=== PATIENT | male | born 1970 | race Caucasian/White ===

== ENCOUNTER 2017-03-31 17:35 | Emergency (ER) | payer BC ==
[~2017-03-31] VITALS: Ht 170.2 cm; Wt 68.0 kg
[~2017-03-31 17:35] MED LIST: AUGMENTIN 875-1 EACH PO; BUPROPION XL300 MG PO; CLONIDINE HCL0.1 MG PO; CRUTCH1 EACH; NORCO 5-325 TA1 EACH PO; PAROXETINE HCL20 MG PO; PERCOCET 5-3251 EACH PO; TRAZODONE HCL150 MG PO
[2017-03-31] MEDS ORDERED: PREDNISONE20 MG PO (18:58)
--- NOTE | 2017-04-01 07:30 | EKG ---
[facility] [address] [facility] [place], [place] [address] Signed Normal sinus rhythm Normal ECG No previous ECGs available Confirmed by GURJIT BHATIA MD ([id number]) on 04/01/2017 7:30:17 AM Electronically Signed By: GURJIT BHATIA MD 04/01/17 0730 PATIENT NAME: MAURO NAILS Electrocardiogram DATE OF : 74 PHYSICIAN: GURJIT BHATIA MD REPORT #: [id number] REPORT IS CONFIDENTIAL AND NOT TO BE RELEASED WITHOUT AUTHORIZATION
== END 2017-03-31 19:14 | disposition home or self-care (01) ==
LOC: ED 17:35
DX: L50.9 Urticaria, unspecified (principal); K21.9 Gastro-esophageal reflux disease without esophagitis; I10 Essential (primary) hypertension; Z90.49 Acquired absence of other specified parts of digestive tract; Z88.8 Allergy status to other drugs, medicaments and biological substances; Z79.899 Other long term (current) drug therapy
CPT/HCPCS: 93005; 93010; 99284; J7512; Q0163

== ENCOUNTER 2024-05-14 20:15 | Emergency (ER) | payer OTHER ==
[~2024-05-14] VITALS: Ht 170.2 cm; Wt 76.0 kg
[~2024-05-14 20:15] MED LIST changes: +MOTRIN IB200 MG PO; +PREDNISONE20 MG PO; +ROSUVASTATIN CA20 MG PO; +TYLENOL EXTRA500 MG PO
[2024-05-14] MEDS ORDERED: ondansetron HCL 4 MG/2 ML VIAL IV ONE (20:30)
[2024-05-14] MEDS ORDERED: MORPHINE SULFATE 4 MG/ML VIAL IV ONE (20:30)
[2024-05-14] MEDS ORDERED: SODIUM CHLORIDE 0.9% 1,000 ML IV ONE (20:30)
[2024-05-14 20:47] LABS: EOSINOPHILS 3.7 % (0-6); HEMATOCRIT 41.8 % (35.0-50.0); HEMOGLOBIN 14.9 g/dL (12.0-18.0); LYMPHOCYTES 21.1 % (24-44); MCH 32.7 (27-36); MCHC 35.5 g/dl (30-36); MCV 92.1 fl (81-99); MONOCYTES 8.7 % (0-12); NEUTROPHILS 65.5 % (39-80); PLATELET COUNT 214 K/uL (140-440); RBC 4.54 M/ul (4.3-5.7); RDW 12.9 (10.5-15.0)
[2024-05-14] MEDS ORDERED: fentaNYL citrate 100 MCG/2 ML VIAL IV ONE (21:00)
[2024-05-14 21:07] LABS: ALBUMIN 3.6 g/dL (3.4-5.0); ALBUMIN/GLOBULIN RATIO 1.24 (1.1-2.4); ANION GAP 11.2 (7-21); BILIRUBIN, TOTAL 0.6 ng/dL (0.2-1.0); BUN/CREATININE RATIO 11.03 (6.0-28.6); CALCIUM 8.6 mg/dL (8.5-10.1); CREATININE, SERUM 1.45 mg/dL (0.70-1.30); POTASSIUM 4.2 mmol/L (3.5-5.1); PROTEIN, TOTAL 6.5 g/dL (6.4-8.2)
[2024-05-14] MEDS ORDERED: HYDROmorphone HCL 1 MG/ML SYR IV PRN (21:45)
[2024-05-14] MEDS ORDERED: KETOROLAC TROMETHAMINE 15 MG/ML VIAL IV ONE (21:45)
[2024-05-14] MEDS ORDERED: ONDANSETRON ODT8 MG PO (21:53)
[2024-05-14] MEDS ORDERED: HYDROCODON-ACE1 EA10 PO (21:53)
[2024-05-14 21:56] LABS: BILIRUBIN, URINE NEGATIVE (negative); BLOOD/HGB, URINE NEGATIVE (Negative); KETONE, URINE NEGATIVE (Negative); LEUK ESTERASE, URINE NEGATIVE (negative); NITRITE, URINE NEGATIVE (negative)
[2024-05-14] MEDS ORDERED: HYDROCODONE BIT/ACETAMINOPHEN 5/325 MG 1 TAB HOME.PACK PO ONE (22:00)
[2024-05-14] MEDS ORDERED: ONDANSETRON 4 MG HOME.PACK SL ONE (22:00)
[2024-05-14 22:11] VITALS: BP 123/77
== END 2024-05-14 22:11 | disposition home or self-care (01) ==
LOC: ED 20:15
PROVIDERS: Family Medicine
DX: K40.90 Unilateral inguinal hernia, without obstruction or gangrene, not specified as recurrent (principal); K42.9 Umbilical hernia without obstruction or gangrene; I10 Essential (primary) hypertension; Z88.8 Allergy status to other drugs, medicaments and biological substances; Z79.899 Other long term (current) drug therapy
CPT/HCPCS: 36415; 74177; 76870; 80053; 81003; 85025; A9270; J1170; J1885; J2405; J3010; J7030

== ENCOUNTER 2024-05-15 23:00 | Observation (INO) | payer OTHER ==
[~2024-05-15] VITALS: Ht 170.2 cm; Wt 74.4 kg
--- OUTSIDE RECORDS SUMMARY | 2024-05-15 23:01 | XMS ---
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 E.D. VISIT COUNT (12 MO.) 2 EBONY [place] TOTAL 2 NOTE: Visits indicate total known visits. ED/UCC VISIT TRACKING (12 MO.) 05/15/2024 23:00 [facility]Y [facility] [place] TYPE: Emergency COMPLAINT: - LT LEG PAIN 05/14/2024 20:15 [facility] [place] TYPE: Emergency COMPLAINT: - GROIN PAIN DIAGNOSES: - Allergy status to other drugs, medicaments and biological substances - Essential (primary) hypertension - Left testicular pain - Other termite exterminator helper (current) drug therapy - Umbilical hernia without obstruction or gangrene - Unilateral inguinal hernia, without obstruction or gangrene, not specified as recurrent INPATIENT VISIT TRACKING (12 MO.) No inpatient visits to display in this time frame [email or web address]
[2024-05-15] MEDS ORDERED: diazePAM 10 MG/2 ML SYR IV ONE (23:30)
[2024-05-15] MEDS ORDERED: GABAPENTIN 300 MG CAP PO ONE (23:30)
[2024-05-15] MEDS ORDERED: methylPREDNISolone SOD SUCC 125 MG/2 ML VIAL IV ONE (23:30)
[2024-05-15] MEDS ORDERED: KETOROLAC TROMETHAMINE 30 MG/ML VIAL IV ONE (23:30)
[2024-05-16] MEDS ORDERED: HYDROmorphone HCL 1 MG/ML SYR IV ONE (00:30)
[2024-05-16] MEDS ORDERED: HYDROmorphone HCL 2 MG HOME.PACK PO ONE (01:15)
[2024-05-16] MEDS ORDERED: CYCLOBENZAPRINE HCL 10 MG HOME.PACK PO ONE (01:15)
[2024-05-16] MEDS ORDERED: methylPREDNISolone 4 MG HOME.PACK PO ONE (01:15)
[2024-05-16] MEDS ORDERED: ZOLPIDEM TARTRATE 5 MG TAB PO ONE (01:30)
[2024-05-16] MEDS ORDERED: CYCLOBENZAPRINE HCL 10 MG TAB PO PRN (01:30)
[2024-05-16] MEDS ORDERED: ACETAMINOPHEN 325 MG TAB PO PRN (01:30)
[2024-05-16] MEDS ORDERED: KETOROLAC TROMETHAMINE 30 MG/ML VIAL IV PRN ×2 (01:30→08:45)
[2024-05-16] MEDS ORDERED: DEXTROSE 5% - LACTATED RINGERS 1,000 ML IV SCH (01:30)
[2024-05-16] MEDS ORDERED: ondansetron HCL 4 MG/2 ML VIAL IV PRN ×3 (01:30→15:45)
--- NOTE | 2024-05-16 01:45 | NUR ---
pt ARRIVED TO THE FLOOR VIA STRETCHER. REPORT RECEIVED FROM JODI GUTIERREZ. pt TRANSFERED TO THE BED VIA SBA. IVF INFUSING PER ORDER. pt DENIES ANY OTHER NEEDS AT THIS TIME. CALL LIGHT WITHIN REACH. ASSESSMENT AND VITAL SIGNS DONE.
[2024-05-16] MEDS ORDERED: ZALEPLON 5 MG CAP PO PRN (02:15)
--- NOTE | 2024-05-16 03:27 | NUR ---
pt RESTING IN THE BED WITH EYES CLOSED. RR EVEN AND UNLABORED. CALL LIGHT WITHIN REACH.
[2024-05-16 05:39] LABS: BASOPHILS 0.1 % (0-2); HEMATOCRIT 43.2 % (35.0-50.0); HEMOGLOBIN 14.9 g/dL (12.0-18.0); LYMPHOCYTES 5.4 % (24-44); MCH 32.3 (27-36); MCHC 34.5 g/dl (30-36); MCV 93.6 fl (81-99); NEUTROPHILS 93.5 % (39-80); PLATELET COUNT 180 K/uL (140-440); RBC 4.62 M/ul (4.3-5.7); RDW 12.9 (10.5-15.0)
[2024-05-16 05:54] LABS: ALBUMIN 3.4 g/dL (3.4-5.0); ALBUMIN/GLOBULIN RATIO 1.1 (1.1-2.4); ANION GAP 12.5 (7-21); BILIRUBIN, TOTAL 0.5 ng/dL (0.2-1.0); BUN/CREATININE RATIO 13.08 (6.0-28.6); CALCIUM 8.7 mg/dL (8.5-10.1); CREATININE, SERUM 1.07 mg/dL (0.70-1.30); MAGNESIUM 1.8 mg/dL (1.8-2.4); POTASSIUM 4.5 mmol/L (3.5-5.1); PROTEIN, TOTAL 6.5 g/dL (6.4-8.2)
--- NOTE | 2024-05-16 05:58 | NUR ---
ASSESSMENT AND VITAL VIGNS DONE. pt UP TO THE BR SBA. pt SATES THE PAIN IS THERE BUT IT IS TOLERABLE AT THIS TIME. CALL LIGHT WITHIN REACH.
--- NOTE | 2024-05-16 07:49 | NUR ---
MORNING ASSESSMENT COMPLETE. IV TORADOL GIVEN FOR 6/10 LEFT GROIN PAIN. PATIENT IS REQUESTING NARCOTIC PAIN MEDICATIONS. NO NAUSEA NOTED, ASSESSMENT IS OTHERWISE BENIGN. S.O. IN ROOM WITH PATIENT. PRE-SURGICAL WIPE TO BE DONE BY PATIENT. PRE-PROCEDURE CHECKLIST IS COMPLETE.
--- NOTE | 2024-05-16 08:01 | NUR ---
ATTEMPTED TO CALL DR. DUTTON, NO MESSAGE LEFT.
[2024-05-16] MEDS ORDERED: LACTATED RINGER'S 1,000 ML IV SCH (08:45)
[2024-05-16] MEDS ORDERED: FAMOTIDINE 20 MG/ 2 ML VIAL IV SCH (09:00)
[2024-05-16] MEDS ORDERED: CEFAZOLIN SODIUM 2 GM/20 ML SYR IV SCH (09:00)
[2024-05-16] MEDS ORDERED: GABAPENTIN 300 MG CAP PO SCH (09:00)
--- NOTE | 2024-05-16 09:14 | NUR ---
UR CLINICAL REVIEW: [facility] OBS CRITERIA [place] SOURCE OBS 05/15/24 @ 2301 ORDER MATCHES REG NO AUTH REQUIRED FOR OBS STAY UNLESS CLINICALS REQUESTED. AWAITING PROCEDURE TODAY 05/17/24
--- NOTE | 2024-05-16 09:43 | NUR ---
PATIENT ALERT AND ORIENTED, SITTING UP IN BED. SIGNIFICANT OTHER IN ROOM. PATIENT STATES HE LIVES IN SINGLE LEVEL HOME. DEMOGRAPHICS VERIFIED. DENIES ANY DME USE. DRIVES SELF NORMALLY, SIGNIFICANT OTHER ABLE TO ASSIST WITH TRANSPORT AT TIME OF DC. PATIENT HAS NO FINANCIAL HARDSHIP AT THIS TIME. PATIENT DENIES ANY NEEDS FROM CASE MANAGEMENT, INSTRUCTED TO NOTIFY STAFF IF NEEDS COME UP. VERBALIZES UNDERSTANDING.
--- NOTE | 2024-05-16 09:48 | NUR ---
MED REC COMPLETE
--- NOTE | 2024-05-16 10:03 | NUR ---
IVF CHANGED TO LR@85. PATIENT GIVEN IV PEPCID, IV ANCEF, PO GABAPENTIN. PAIN RATING IS 4/10. PATIENT KNOWS HE MAY HAVE PO TYLENOL AND FLEXERIL AT 1030.
--- NOTE | 2024-05-16 10:16 | EKG ---
[facility] [address] [facility] [place] [address] Signed Sinus bradycardia Otherwise normal ECG When compared with ECG of 31-MAR-2017 17:43, Vent. rate has decreased BY 30 BPM Confirmed by Rashad Schmitz MD () on 05/16/2024 10:16:17 AM Electronically Signed By: RASHAD SCHMITZ MD 05/16/24 1016 PATIENT NAME: MAURO NAILS KINZA Electrocardiogram DATE OF : 74 PHYSICIAN: RASHAD SCHMITZ MD REPORT #: [id number] REPORT IS CONFIDENTIAL AND NOT TO BE RELEASED WITHOUT AUTHORIZATION
--- NOTE | 2024-05-16 11:06 | NUR ---
PATIENT GIVEN 650MG OF TYLENOL AND 5MG OF FLEXERIL FOR 4/10 PAIN. NO OTHER NEEDS AT THIS TIME.
[2024-05-16] MEDS ORDERED: LIDOCAINE HCL 2% 5 ML SDV ONE (13:54)
[2024-05-16] MEDS ORDERED: propofoL 200 MG/20 ML VIAL ONE (13:54)
--- NOTE | 2024-05-16 13:55 | NUR ---
VISITED DURING SPIRITUAL CARE ROUNDS. PT SUPPORTED BY LIFE PARTNER IN ROOM. BOTH IN OVERALL GOOD SPIRITS ALTHOUGH PT STATED HE IS UNCOMFORTABLE DUE TO PAIN, LOOKING FORWARD TO PROCEDURE. LUBRICATING MACHINE TENDER PROVIDED SUPPORTIVE PRESENCE, HOSPITALITY, PRAYER. PT AND TROLLEY CAR OPERATOR EXPRESSED GRATITUDE.
--- NOTE | 2024-05-16 14:17 | NUR ---
PATIENT TO SURGERY WITH MATT AMARAL.
[2024-05-16] MEDS ORDERED: fentaNYL citrate 100 MCG/2 ML VIAL ONE (14:26)
[2024-05-16] MEDS ORDERED: KETOROLAC TROMETHAMINE 30 MG/ML VIAL ONE (14:50)
[2024-05-16] MEDS ORDERED: ondansetron HCL 4 MG/2 ML VIAL ONE (14:50)
[2024-05-16] MEDS ORDERED: DEXAMETHASONE SOD PHOS 4 MG/ML VIAL ONE (14:50)
[2024-05-16] MEDS ORDERED: ePHEDrine sulfate 50 MG/ML AMP ONE (14:51)
[2024-05-16] MEDS ORDERED: SEVOFLURANE 250 ML BTL ONE (14:51)
--- NOTE | 2024-05-16 15:40 | NUR ---
05/16/24 1540 Sheets,[place] 1534 PT ARRIVED TO PACU ON 6L VIA MASK, ORAL AIRWAY IN PLACE, RESP EVEN AND UNLABORED WITH HEAD TILT. VSS.
[2024-05-16] MEDS ORDERED: fentaNYL citrate 50 MCG/ML SDV IV PRN (15:45)
[2024-05-16] MEDS ORDERED: NALOXONE HCL 0.4 MG SYR IV PRN (15:45)
[2024-05-16] MEDS ORDERED: HYDROmorphone HCL 1 MG/ML SYR IV PRN (15:45)
[2024-05-16] MEDS ORDERED: IBLOOD GLUCOSE TEST STRIP 1 EA TEST VI PRN (15:45)
[2024-05-16] MEDS ORDERED: ACETAMINOPHEN 500 MG TAB PO PRN (16:15)
[2024-05-16] MEDS ORDERED: IBUPROFEN 600 MG TAB PO PRN (16:15)
[2024-05-16] MEDS ORDERED: ACETAMINOPHEN 1,000 MG/100 ML VIAL IV PRN (16:15)
--- NOTE | 2024-05-16 16:23 | NUR ---
PATIENT RETURNED FROM SURGERY, VSS. LEFT GROIN SURGICAL SITE IS CDI AND COVERED WITH ACTICOAT. PATIENT IS ON ROOM AIR, RATES PAIN 2/10. NO OTHER NEEDS AT THIS TIME.
--- NOTE | 2024-05-16 18:05 | NUR ---
SECOND SET OF POST OP VITALS COMPLETE. PATIENT IS SITTING UP IN BED TO EAT DINNER.
--- NOTE | 2024-05-16 19:10 | NUR ---
REPORT RECEIVED FROM NAKUL GUTIERREZ. BOARD UPDATED. pt RESTING IN THE BED. CALL LIGHT WITHIN REACH. NO OTHER NEEDS AT THIS TIME.
[2024-05-16 20:06] VITALS: BP 115/64
--- NOTE | 2024-05-17 12:37 | HP ---
[facility] [address] [place], [place] [address] Signed ADMISSION DATE: 05/16/2024 REASON FOR ADMISSION: Severe pain, left groin, previous documented left inguinal hernia. HISTORY OF PRESENT ILLNESS: This 53-year-old white man is known to me from the past having undergone cholecystectomy and other interventions in the distant past. He has had since February following construction of a chicken coop on his property, some severe left groin pain from [id number]. 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 His pain was in the left groin and very severe and unremitting and felt that the radicular symptoms in the anteromedial thigh and even in the hip. He was seen by his primary provider, and ultimately seen in the emergency room by Dr. Sherman on May 14, 2024 undergoing a scrotal ultrasound, which showed no evidence of torsion, but a fat containing left inguinal hernia incidentally noted. The pain could not otherwise be explained and has been persistent. 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 Colonic diverticulosis was noted, but there was no evidence of diverticulitis. A mildly enlarged prostate was noted. No mention was made of inguinal herniation on the CT scan evaluation. The patient has not described a bulge in the left groin particularly, but has noted worsened pain particularly upon standing. Indeed with bed rest as he has done since Wednesday, his pain is reasonably tolerable, but upright, not so. PAST MEDICAL HISTORY: Notable for cholecystectomy as well as excision of a sternal skin lesion. He had development of a keloid requiring re-excision and radiation therapy. He has had a right labral repair in 2012. The patient does have a known history of opiate use disorder. ALLERGIES: He has allergies to lithium causing severe nausea and vomiting and Demerol causing nausea and vomiting. CURRENT MEDICATIONS: Include clonidine 0.1 mg daily and rosuvastatin. Electronically Signed By: DARYA DUTTON MD 05/17/24 1105 Electronically Signed By: DARYA DUTTON MD 05/22/24 1320 PATIENT NAME: MAURO NAILS HISTORY AND PHYSICAL DATE OF : 74 REPORT #: [id number] PHYSICIAN: DARYA DUTTON MD PCP: LYDIA RIDER MD REPORT IS CONFIDENTIAL AND NOT TO BE RELEASED WITHOUT AUTHORIZATION [facility] [address] [place] [id number] Signed SOCIAL HISTORY: He is accompanied by his significant other. 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 REVIEW OF SYSTEMS: He denies any chest pain. He has no back pain. Denies shortness of breath or dysphagia. He has had no blood per rectum. PHYSICAL EXAMINATION: GENERAL: Well-developed, well-nourished white man, who does not look systemically toxic. He is accompanied by his significant other. NECK: Trachea is midline. CHEST: Shows normal respiratory excursion. Pulse is regular. ABDOMEN: Nondistended. There is a small defect at the umbilicus, which is nontender. It is less than 1 cm. : Examination of the scrotum shows both testicles to be normal. There is no sign of testicular tenderness or cord abnormality. Palpation in the left groin does not demonstrate hernia in the supine position. There is minimal local tenderness. Right side is normal. ASSESSMENT AND PLAN: He was noted to have a herniation of fat on ultrasound that was performed and evaluation for his left groin pain. CT scan does not readily show that well, but I will review it further to ascertain if that is the case. He has no evidence of bowel obstruction or other similar problem. The fact that his symptoms are worsened upon standing position does suggest possible hernia related pain. I did note that he likely could tolerate operation for hernia and the hernia would be repaired, but I cannot guarantee by any means that the pain would be resolved. I see no other cause of his pain. However, exploration of the left inguinal area and repair of hernia as noted whether small or large is offered to him. The risk of bleeding, infection, failure of diagnosis, missed diagnosis, and need for other interventions was reviewed. He understands and wished to proceed. MD CRYSTAL Sidhu/LEXIEL Electronically Signed By: DARYA DUTTON MD 05/17/24 1105 Electronically Signed By: DARYA DUTTON MD 05/22/24 1320 PATIENT NAME: MAURO NAILS HISTORY AND PHYSICAL DATE OF : 74 REPORT #: [id number] PHYSICIAN: DARYA DUTTON MD PCP: LYDIA RIDER MD REPORT IS CONFIDENTIAL AND NOT TO BE RELEASED WITHOUT AUTHORIZATION [address] [address] Signed /[id number] cc: MD Dr. Whit Mcconnell Copies: LYDIA RIDER DMD ~ Electronically Signed By: DARYA DUTTON MD 05/17/24 1105 Electronically Signed By: DARYA DUTTON MD 05/22/24 1320 PATIENT NAME: MAURO NAILS HISTORY AND PHYSICAL DATE OF : 74 REPORT #: [id number] PHYSICIAN: DARYA DUTTON MD PCP: LYDIA RIDER MD REPORT IS CONFIDENTIAL AND NOT TO BE RELEASED WITHOUT AUTHORIZATION
--- NOTE | 2024-05-17 12:38 | OR ---
[facility] [address] [place], [place] [address] Signed DATE OF OPERATION: 05/16/2024 SURGEON: Daray Dutton MD PREOPERATIVE DIAGNOSIS: Symptomatic left inguinal hernia. POSTOPERATIVE DIAGNOSIS: Symptomatic left inguinal hernia (direct). PROCEDURES: 1. Repair of left inguinal hernia. 2. Implantation of Prolene mesh underlay technique. ANESTHESIA: General LMA, Janette Zhong CRNA and local 10 mL of 0.25% Marcaine with epinephrine. INDICATION: This 53-year-old white man has had increasing pain in the left groin since February and particularly worsening in the past few weeks and disabling pain in the past several days. He has undergone a CT scan and an ultrasound. The ultrasound confirmed no sign of abnormality of the left hemiscrotum or left testicle, but did show a small fat containing hernia in the groin. A CT scan showed no other abnormality and did not certainly show a hernia on my review. He has persistent unrelenting and intolerable pain at this point and consideration is made that the hernia may be accounting for his symptoms. He is improved in his pain when in the supine position and not standing. Hernia operation is offered in the hopes that this may improve his symptoms. He understands the risk of bleeding, infection, recurrent hernia, and of course complete failure to cure his pain problems. He understands this and wished to proceed. FINDINGS: The cord structures were normal. The hernia was a direct type. There was no sign of indirect hernia sac. Herniated properitoneal fat was noted. Repair consisted of implantation of Prolene mesh in an underlay technique. Regional nerves were spared, though one ilioinguinal nerve was divided during the course of dissection. DESCRIPTION OF PROCEDURE: The patient was brought to the operating room, given a general LMA type anesthetic. Preoperative antibiotic Ancef was given. Sequential compression device stockings were used. The lower abdomen was clipped and prepared with a chlorhexidine solution and Electronically Signed By: DARYA DUTTON MD 05/17/24 1105 Electronically Signed By: DARYA DUTTON MD 05/22/24 1320 PATIENT NAME: MAURO NAILS OPERATIVE REPORT DATE OF : 74 REPORT #: [id number] PHYSICIAN: DARYA DUTTON MD PCP: LYDIA RIDER MD REPORT IS CONFIDENTIAL AND NOT TO BE RELEASED WITHOUT AUTHORIZATION [facility] [address] [place], [place] [address] Signed draped sterilely. An incision was made cephalad to the pubic tubercle and dissection carried through the subcutaneous tissue ultimately identifying the external oblique fascia. This was incised along its fibers revealing the underlying cord. An ilioinguinal and iliohypogastric nerve branch were identified and dissected free and preserved and reflected medially around the external oblique. The cord was mobilized from the floor once the branch of an ilioinguinal nerve was divided during the course of this dissection. With meticulous care, the cord was mobilized from the floor and encircled with a Osprey drain. Once freed from the floor, the floor could be well examined and showed direct herniation. There was no sign of indirect hernia sac. No hernia sac or other abnormality is noted lateral to the inferior epigastric vein. The attenuated fibers of the fascia of transversalis were incised with electrocautery and the properitoneal fat bluntly free. A segment of Prolene mesh was cut to an elliptical configuration and secured in an underlay technique with interrupted 2-0 Prolene suture. A defect was cut in the graft to accommodate the cord. The tails of the graft were secured carefully around the cord and secured so as to avoid vascular compromise to its cord structures. A 10 mL of 0.25% Marcaine with epinephrine was injected locally. The ilioinguinal and iliohypogastric nerve branches were identified as normal, ilioinguinal nerve replaced to the position with the cord. The external oblique was reapproximated with running 2-0 Vicryl suture. 10 mL of 0.25% Marcaine with epinephrine had been injected locally for postoperative analgesic benefit. Sean's layer was reapproximated with interrupted 2-0 Vicryl and skin closed with running subcuticular 3-0 Vicryl. Steri-Strips were applied as was an Acticoat dressing. The patient tolerated the procedure well, was extubated without problem, taken to recovery room in good condition. Sponge, needle, and instrument counts were reported as correct x3. MD CRYSTAL Sidhu/MODL /[id number] cc: MD Bon Mcconnell MD Dr. Shannon Servin Electronically Signed By: DARYA DUTTON MD 05/17/24 1105 Electronically Signed By: DARYA DUTTON MD 05/22/24 1320 PATIENT NAME: MAURO NAILS OPERATIVE REPORT DATE OF : 74 REPORT #: [id number] PHYSICIAN: DARYA DUTTON MD PCP: LYDIA RIDER MD REPORT IS CONFIDENTIAL AND NOT TO BE RELEASED WITHOUT AUTHORIZATION [facility] [address] [place], [place] [address] Signed Copies: LYDIA RIDER DMD, WILLIAM S MD ~ Electronically Signed By: DARYA DUTTON MD 05/17/24 1105 Electronically Signed By: DARYA DUTTON MD 05/22/24 1320 PATIENT NAME: MAURO NAILS OPERATIVE REPORT DATE OF : 74 REPORT #: [id number] PHYSICIAN: DARYA DUTTON MD PCP: LYDIA RIDER MD REPORT IS CONFIDENTIAL AND NOT TO BE RELEASED WITHOUT AUTHORIZATION
== END 2024-05-16 20:24 | disposition home or self-care (01) ==
LOC: ED 23:00 → MS 23:01
PROVIDERS: Family Medicine; ADMIT Surgery; ATTEND Surgery
PROC: 0YU60JZ Supplement Left Inguinal Region with Synthetic Substitute, Open Approach (ICD-10-PCS; principal; 2024-05-16)
DX: K40.90 Unilateral inguinal hernia, without obstruction or gangrene, not specified as recurrent (principal); E78.00 Pure hypercholesterolemia, unspecified; K21.9 Gastro-esophageal reflux disease without esophagitis; Z88.8 Allergy status to other drugs, medicaments and biological substances; Z79.899 Other long term (current) drug therapy
CPT/HCPCS: 00830; 36415; 72131; 80053; 83735; 85025; 85651; 86140; 93005; 93010; 96374; 96375; 96376; 99284-25; A9270; C1781; G0378; J0690; J1100; J1170; J1885; J2001; J2405; J2704; J2919; J3010; J3360; J7121